=== PATIENT | male | born 1995 | race American Indian/Alaskan Native ===

== ENCOUNTER 2017-07-02 11:22 | Emergency (ER) | payer SELFPAY ==
[2017-07-02 11:44] VITALS: BP 125/75
--- NOTE | 2017-07-02 12:07 | XRay Report ---
ROUTINE CHEST, TWO VIEWS: HISTORY: Wheezing. The trachea, heart, mediastinal contour, lung reed and bony thorax are unremarkable. IMPRESSION: No acute cardiopulmonary process identified.
--- NOTE | 2017-07-02 12:31 | Emergency Department Report ---
ED Medical Clearance HPI - General Chief complaint: Adult Asthma Stated complaint: WHEEZING Time Seen by Provider: 07/02/17 11:54 Source: patient Mode of arrival: Ambulatory - History of Present Illness Initial comments: This is a 21-year-old male nontoxic, well nourished in appearance, no acute signs of distress presents to the ED with for medical evaluation for wheezing. Patient stated that he went to donate blood and the nurse stated that he has wheezing. Patient stated that he does not have any history of asthma or any symptoms. Patient stated that he feels good with no symptoms. Patient stated he just came to the ER for an evaluation. Patient denies any chest pain, shortness of breath, fever, chills, nausea, vomiting, headache, stiff neck, hemoptysis, calf pain or calf tenderness. Patient denies any allergies or significant past medical history. -: This morning Alledged Intoxication: No Compliant with Home Medications: No Traumatic Symptoms: denies traumatic injury Associated Symptoms: denies other symptoms. denies: chest pain, shortness of breath, palpitations, diaphoresis, confusion, cough, fever/chills, headaches, anorexia, malaise, nausea/vomiting, rash, seizure, syncope, weakness Treatments Prior to Arrival: none ED Review of Systems ROS: Stated complaint: WHEEZING Other details as noted in HPI Constitutional: denies: chills, fever Eyes: denies: eye pain, eye discharge, vision change ENT: denies: ear pain, throat pain Respiratory: denies: cough, shortness of breath, wheezing Cardiovascular: denies: chest pain, palpitations Endocrine: no symptoms reported Gastrointestinal: denies: abdominal pain, nausea, diarrhea Genitourinary: denies: urgency, dysuria Musculoskeletal: denies: back pain, joint swelling, arthralgia Skin: denies: rash, lesions Neurological: denies: headache, weakness, paresthesias Psychiatric: denies: anxiety, depression Hematological/Lymphatic: denies: easy bleeding, easy bruising ED Past Medical Hx - Past Medical History Previous Medical History?: No - Surgical History Past Surgical History?: No - Social History Smoking Status: Current Every Day Smoker Substance Use Type: Alcohol, Marijuana ED Physical Exam - General Limitations: No Limitations General appearance: alert, in no apparent distress - Head Head exam: Present: atraumatic, normocephalic - Eye Eye exam: Present: normal appearance Pupils: Present: normal accommodation - ENT ENT exam: Present: normal exam, normal orophraynx, mucous membranes moist, TM's normal bilaterally, normal external ear exam - Neck Neck exam: Present: normal inspection, full ROM. Absent: tenderness, meningismus, lymphadenopathy, thyromegaly - Respiratory Respiratory exam: Present: normal lung sounds bilaterally. Absent: respiratory distress, wheezes, rales, rhonchi, stridor, chest wall tenderness, accessory muscle use, decreased breath sounds, prolonged expiratory - Cardiovascular Cardiovascular Exam: Present: regular rate, normal rhythm, normal heart sounds. Absent: bradycardia, tachycardia, irregular rhythm, systolic murmur, diastolic murmur, rubs, gallop - GI/Abdominal GI/Abdominal exam: Present: soft, normal bowel sounds - Rectal Rectal exam: Present: deferred - Extremities Exam Extremities exam: Present: normal inspection, full ROM, normal capillary refill - Back Exam Back exam: Present: normal inspection, full ROM - Neurological Exam Neurological exam: Present: alert, oriented X3, normal gait - Psychiatric Psychiatric exam: Present: normal affect, normal mood - Skin Skin exam: Present: warm, dry, intact, normal color. Absent: rash ED Course Vital Signs 07/02/17 11:39 Temperature 98.4 F Pulse Rate 63 Respiratory 16 Rate Blood Pressure 125/75 - Reevaluation(s) Reevaluation #1: 07/02/17 12:29 Patient is speaking in full sentences with no signs of distress noted. ED Medical Decision Making - Medical Decision Making This is a 21-year-old male that presents with medical evaluation. Patient is stable and was examined by me. Chest x-ray has been obtained and dictated by the radiologist within normal limits. Patient is notified of the results. This noted by the patient. Vital signs are stable. Upon examination there is no respiratory or cardiopulmonary abnormalities. Patient was referred to Follow -up with a primary care doctor in 3-5 days or if symptoms worsen and continue return to emergency room as soon as possible. At time of discharge, the patient does not seem toxic or ill in appearance. No acute signs of distress noted. Patient agrees to discharge treatment plan of care. No further questions noted by the patient. ED Disposition Clinical Impression: Normal exam Disposition: DC-01 TO HOME OR SELFCARE Is pt being admited?: No Does the pt Need Aspirin: No Condition: Stable Additional Instructions: Follow-up with a primary care doctor in 3-5 days or if symptoms worsen and continue return to emergency room as soon as possible. Referrals: PRIMARY CARE, [Primary Care Provider] - 3-5 Days STEVEN PATEL MD [Staff Physician] - 3-5 Days [facility] [Outside] - 3-5 Days [facility] [Outside] - 3-5 Days Forms: Work/School Release Form(ED)
== END 2017-07-02 12:42 | disposition home or self-care (01) ==
LOC: ED 11:22
DX: R06.2 Wheezing (principal); F17.200 Nicotine dependence, unspecified, uncomplicated; F12.10 Cannabis abuse, uncomplicated
CPT/HCPCS: 71046; 99283

== ENCOUNTER 2017-08-08 09:11 | Emergency (ER) | payer OTHER ==
[2017-08-08 09:25] VITALS: BP 120/74
--- NOTE | 2017-08-08 11:58 | Emergency Department Report ---
Chief Complaint: Urogenital-Male Stated Complaint: PAIN WITH UNRINATION Time Seen by Provider: 08/08/17 11:31 - HPI History of Present Illness: Patient is a 22-year-old -[place] male who is presenting with dysuria. Patient states his girlfriend stated that she had STD here for treatment. Patient has no penile discharge is no abdominal pain fever at this time. - ROS Review of Systems: Review of systems are reviewed and all negative - Exam Vital Signs: Vital Signs 08/08/17 09:23 Temperature 98 F Pulse Rate 70 Respiratory 19 Rate Blood Pressure 120/74 O2 Sat by Pulse 100 Oximetry Physical Exam: Patient's abdominal exam is benign there is no rebound or guarding no normal bowel sounds urogenital exam is within normal limits MSE screening note: Focused history and physical exam performed. Due to findings the following was ordered: ED Medical Decision Making - Medical Decision Making Patient is bending did not medical emergency at this time. Patient was seen by registration patient opted to not pay the hospital co-pay and was referred to assess at [facility] ED Disposition for MSE Clinical Impression: STD exposure Disposition: MED SCREENING EXAM-LEFT Is pt being admited?: No Does the pt Need Aspirin: No Condition: Stable Referrals: PRIMARY CARE, [Primary Care Provider] - 3-5 Days
== END 2017-08-08 11:58 | disposition left against medical advice (07) ==
LOC: ED 09:11
DX: R30.0 Dysuria (principal); Z53.21 Procedure and treatment not carried out due to patient leaving prior to being seen by health care provider